=== PATIENT | male | born 1960 | race Caucasian/White ===

== ENCOUNTER 2017-06-10 21:18 | Emergency (ER) | payer OTHER ==
[~2017-06-10] VITALS: Ht 182.9 cm; Wt 103.3 kg
[2017-06-10 21:20] VITALS: BP 138/88
[2017-06-10] MEDS ORDERED: DIPH,PERTUSS(ACELL),TET VAC/PF 0.5 ML IM-VACC ONE ×2 (21:53→22:00)
[2017-06-10] MEDS ORDERED: BACITRACIN ZINC OINT 500U/GM, 0.9 GM ONE (21:53)
[2017-06-10] MEDS ORDERED: LIDOCAINE 1%, 20ML SQ ONE (22:00)
[2017-06-10] MEDS ORDERED: LIDOCAINE 1%, 20ML ONE (22:01)
== END 2017-06-10 22:53 | disposition home or self-care (01) ==
LOC: ED 22:47
DX: S61.511A Laceration without foreign body of right wrist, initial encounter (principal); X58.XXXA Exposure to other specified factors, initial encounter; Y93.89 Activity, other specified; Y99.8 Other external cause status; Y92.89 Other specified places as the place of occurrence of the external cause
CPT/HCPCS: 12001; 90471; 90715